=== PATIENT | female | born 1950 | race American Indian/Alaskan Native ===

== ENCOUNTER 2021-10-23 11:44 | Outpatient (CLI) | payer MEDICARE ==
[2021-10-23 12:22] LABS: Hematocrit 35.6 % (30.3-42.9); Hemoglobin 12.1 gm/dl (10.1-14.3); Mean Corpuscular HGB Conc 34 % (30-34); Mean Corpuscular Volume 93 fl (79-97); Platelet Count 199 K/mm3 (140-440); Red Blood Count 3.85 M/mm3 (3.65-5.03); Red Cell Distribution Width 14.2 % (13.2-15.2)
[2021-10-23 12:39] LABS: Erythrocyte Sedimentation Rate 35 mm/Hr (0-20)
[2021-10-23 12:45] LABS: Alanine Aminotransferase 11 units/L (7-56); Blood Urea Nitrogen 16 mg/dL (7-17); Calcium 9.2 mg/dL (8.4-10.2); Hemolysis Index 2
[2021-10-23 12:47] LABS: BUN/Creatinine Ratio 32
== END 2021-10-23 11:45 | disposition home or self-care (01) ==
LOC: LAB 11:44
PROVIDERS: ATTEND Specialist
DX: G45.9 Transient cerebral ischemic attack, unspecified (principal); G31.84 Mild cognitive impairment of uncertain or unknown etiology; A53.9 Syphilis, unspecified
CPT/HCPCS: 36415; 80053; 82607; 83921; 84443; 85027; 85652; 86592

== ENCOUNTER 2021-12-31 12:35 | Outpatient (CLI) | payer MEDICARE | END 2021-12-31 12:36 | disposition home or self-care (01) | LOC: LAB 12:35 | PROVIDERS: ATTEND Specialist | DX: R53.83 Other fatigue (principal) | CPT/HCPCS: 36415 ==